=== PATIENT | male | born 1960 | race Caucasian/White ===

== ENCOUNTER 2016-10-02 17:20 | Emergency (ER) | payer BC ==
[2016-10-02] MEDS ORDERED: ONDANSETRON 4 MG TAB.RAPDIS PO ONE (17:47)
[2016-10-02] MEDS ORDERED: OXYCODONE-ACETAMINOPHEN 5-325 MG TABLET PO ONE (17:47)
--- NOTE | 2016-10-02 17:51 | ER Document Report ---
ED Medical Screen (RME) - General Chief Complaint: Fall Stated Complaint: FALL/RIGHT SHOULDER PAIN, HEAD PAIN Time Seen by Provider: 10/02/16 17:43 Notes: Patient was standing on the bed of a roll-back while it was tilted up, placing him approximately 6 feet off the ground. The asphalt below injuring his right clavicle, and striking his right occipito- parietal skull. Is having severe pain to his right collarbone region, feels short of breath and hurts to breathe. He is also having headache from where he struck his head. There is no neck tenderness. I have greeted and performed a rapid initial assessment of this patient. A comprehensive ED assessment and evaluation of the patient, analysis of test results and completion of the medical decision making process will be conducted by additional ED providers. TRAVEL OUTSIDE OF THE [place] IN LAST 30 DAYS: No - Related Data Allergies/Adverse Reactions: No Known Allergies Allergy (Unverified 10/02/16 17:27) Past Medical History Renal/ Medical History: Denies: Hx Peritoneal Dialysis Physical Exam - Vital signs Vitals: Temp Pulse Resp BP Pulse Ox 98.7 F 97 22 H 171/96 H 97 10/02/16 17:26 10/02/16 17:26 10/02/16 17:26 10/02/16 17:26 10/02/16 17:26 Course - Vital Signs Vital signs: Temp Pulse Resp BP Pulse Ox 98.7 F 97 22 H 171/96 H 97 10/02/16 17:26 10/02/16 17:26 10/02/16 17:26 10/02/16 17:26 10/02/16 17:26
--- NOTE | 2016-10-02 18:14 | RADIOLOGY REPORT (SQ) ---
EXAM DESCRIPTION: CT HEAD WITHOUT COMPLETED DATE/TIME: 10/02/2016 6:00 pm REASON FOR STUDY: fell off truck 6ft, broke clavicle, hit R occiput COMPARISON: None. TECHNIQUE: Axial images acquired through the brain without intravenous contrast. Images reviewed wi th bone, brain and subdural windows. Images stored on PACS. All CT scanners at this facility use dose modulation, iterative reconstruction, and/or weight based d osing when appropriate to reduce radiation dose to as low as reasonably achievable (ALARA). [facility]: Dose Right [facility]: CareDose [facility]: Dose Right [facility]: Teradose 4D [facility]: [employer] RADIATION DOSE: Up-to-date CT equipment and radiation dose reduction techniques were employed. CTDIv ol: 64.6 mGy. DLP: 1034 mGy-cm. mGy. LIMITATIONS: None. FINDINGS: VENTRICLES: Normal size and contour. CEREBRUM: No masses. No hemorrhage. No midline shift. Normal mac/white matter differentiation. N o evidence for acute infarction. CEREBELLUM: No masses. No hemorrhage. No alteration of density. No evidence for acute infarction. EXTRAAXIAL SPACES: No fluid collections. No masses. ORBITS AND GLOBE: No intra- or extraconal masses. Normal contour of globe without masses. CALVARIUM: No fracture. PARANASAL SINUSES: No fluid or mucosal thickening. SOFT TISSUES: Mild right parietal soft tissue swelling. OTHER: No other significant finding. IMPRESSION: No acute intracranial finding. TECHNICAL DOCUMENTATION: JOB ID: [id number] Quality ID # [id number]: Final reports with documentation of one or more dose reduction techniques (e.g., Au tomated exposure control, adjustment of the mA and/or kV according to patient size, use of iterative reconstruction technique) 2010 [employer]- All Rights Reserved
--- NOTE | 2016-10-02 18:46 | ER Document Report ---
ED Fall - General Mode of Arrival: Ambulatory Information source: Patient TRAVEL OUTSIDE OF THE [place] IN LAST 30 DAYS: No - HPI Context: Lost balance Location of injury/pain: Head, Shoulder - right <TONY ROMAN - Last Filed: 10/02/16 23:33> <CARINA NICKERSON - Last Filed: 10/03/16 04:34> - General Chief Complaint: Fall Stated Complaint: FALL/RIGHT SHOULDER PAIN, HEAD PAIN Time Seen by Provider: 10/02/16 17:43 Notes: Patient is a 55 year old male who presents to the ED with complaints of right side rib and shoulder and headache secondary to a fall that occurred today. Patient states that he fell approximately 6 foot off of a rollback trailer when he lost his balance. Patient states he thinks he landed on his right side and also hit his head. Patient has some back pain and difficulty breathing secondary to the pain but states some improvement after coming to the ED. Patient denies any abdominal pain, pain in his right wrist or elbow. Patient is not on any blood thinners. No other concerns or complaints at this time. (TONY ROMAN) - Related data Allergies/Adverse Reactions: No Known Allergies Allergy (Unverified 10/02/16 17:27) Past Medical History - General Information source: Patient - Social History Smoking Status: Never Smoker Family History: None Patient has suicidal ideation: No Patient has homicidal ideation: No Renal/ Medical History: Denies: Hx Peritoneal Dialysis <TONY ROMAN - Last Filed: 10/02/16 23:33> Review of Systems - Review of Systems Constitutional: No symptoms reported EENT: No symptoms reported Cardiovascular: No symptoms reported Respiratory: See HPI, Other - difficulty breathing secondary to pain Gastrointestinal: No symptoms reported Genitourinary: No symptoms reported Male Genitourinary: No symptoms reported Musculoskeletal: See HPI, Back pain, Joint pain - right shoulder Skin: No symptoms reported Hematologic/Lymphatic: No symptoms reported Neurological/Psychological: See HPI, Headaches <TONY ROMAN - Last Filed: 10/02/16 23:33> Physical Exam - General General appearance: Alert, Other - awake, appears uncomfortable - HEENT Head: Normocephalic, Atraumatic Eyes: Normal Extraocular movements intact: Yes Pupils: PERRL Neck: Normal, Other - no tenderness to palpation of midline neck - Respiratory Respiratory status: No respiratory distress Chest status: Tender - right lateral chest wall tenderness to palpation - Cardiovascular Rhythm: Regular Heart sounds: Normal auscultation Murmur: No Pulses: Normal: Brachial, Radial Normal capillary refill: Yes - Abdominal Inspection: Normal Distension: No distension Bowel sounds: Normal Tenderness: Nontender Organomegaly: No organomegaly - Back Back: Normal, Nontender - Extremities General upper extremity: Normal inspection, Normal color, Other - right fingers , wrist, elbow and humerus are all normal General lower extremity: Normal inspection, Normal ROM Shoulder: Nontender - right scapula is not tender to palpation, Tender - tender to palpation over his right clavical specifically his right acromion Arm: Normal - Neurological Neuro grossly intact: Yes Cognition: Normal Orientation: AAOx4 [place] Coma Scale Eye Opening: Spontaneous Joan Coma Scale Verbal: Oriented Joan Coma Scale Motor: Obeys Commands Joan Coma Scale Total: 15 Speech: Normal Motor strength normal: LUE, RUE, LLE, RLE Sensory: Normal - sensation is intact distally - Psychological Associated symptoms: Other - appears uncomfortable - Skin Skin Temperature: Warm Skin Moisture: Dry Skin Color: Normal <TONY ROMAN - Last Filed: 10/02/16 23:33> Course <TONY ROMAN - Last Filed: 10/02/16 23:33> - Diagnostic Test Radiology reviewed: Reports reviewed <CARINA NICKERSON - Last Filed: 10/03/16 04:34> - Re-evaluation Re-evalutation: 10/02/16 19:36 Patient was re-examined and updated on results. Patient was just given medication. (TONY ROMAN) 10/02/16 20:29 Patient with 6 foot fall. Patient has a right clavicle fracture. No other injuries noted on x-ray. Patient feels better with swelling and pain medication. Patient is to follow-up with orthopedics. Patient is neurovascularly intact at the time of discharge. Return if any worsening or concerning symptoms. Understands and agrees with plan. Stable for discharge. Grateful for care. (CARINA NICKERSON) - Vital Signs Vital signs: Temp Pulse Resp BP Pulse Ox 98.1 F 77 18 160/90 H 100 10/02/16 20:49 10/02/16 20:49 10/02/16 20:49 10/02/16 20:49 10/02/16 20:49 Discharge <TONY ROMAN - Last Filed: 10/02/16 23:33> <CARINA NICKERSON - Last Filed: 10/03/16 04:34> - Discharge Clinical Impression: Chest wall contusion Clavicle fracture Qualifiers: Encounter type: initial encounter Clavicle location: shaft Fracture type: closed Fracture alignment: displaced Laterality: right Qualified Code(s): S42.021A - Displaced fracture of shaft of right clavicle, initial encounter for closed fracture Condition: Stable Disposition: HOME, SELF-CARE Instructions: Fractured Clavicle ([facility]), Contusion ([facility]) Prescriptions: Lidocaine [Lidoderm 5% (700 mg) Transdermal Patch] 1 patch TP DAILY #30 adh..patch Oxycodone HCl/Acetaminophen [Percocet 5-325 mg Tablet] 1 - 2 tab PO Q4H PRN #20 tablet PRN Reason: Referrals: KILO ARCE MD [Primary Care Provider] - Follow up as needed GIOVANY BLOCK DO [ACTIVE STAFF] - Follow up in 3-5 days (Call for appointment tomorrow.) Scribe Attestation: 10/03/16 04:34 I personally performed the services described in the documentation, reviewed and edited the documentation which was dictated to the scribe in my presence, and it accurately records my words and actions. (CARINA NICKERSON) Scribe Documentation - Scribe Written by Rachael:: rachael Norton, 10/02/2016, 195 acting as scribe for :: Andrzej <TONY ROMAN - Last Filed: 10/02/16 23:33>
[2016-10-02] MEDS ORDERED: MORPHINE SULFATE 10 MG/ML INJ IM ONE (18:51)
--- NOTE | 2016-10-02 18:51 | RADIOLOGY REPORT (SQ) ---
EXAM DESCRIPTION: CHEST SINGLE VIEW COMPLETED DATE/TIME: 10/02/2016 6:35 pm REASON FOR STUDY: Right clavicle fx, SOB, hurts to breathe COMPARISON: None. EXAM PARAMETERS: NUMBER OF VIEWS: One view. TECHNIQUE: Single frontal radiographic view of the chest acquired. RADIATION DOSE: NA LIMITATIONS: None. FINDINGS: LUNGS AND PLEURA: No acute opacities, masses or pneumothorax. No pleural effusion. MEDIASTINUM AND HILAR STRUCTURES: No masses. Contour normal. HEART AND VASCULAR STRUCTURES: Heart normal in size. Normal vasculature. BONES: Right clavicle fracture. HARDWARE: None in the chest. OTHER: No other significant finding. IMPRESSION: Right clavicle fracture. No acute cardiopulmonary finding. TECHNICAL DOCUMENTATION: JOB ID: [id number]
[2016-10-02] MEDS ORDERED: METOCLOPRAMIDE HCL 10 MG TABLET PO ONE (18:52)
--- NOTE | 2016-10-02 18:53 | RADIOLOGY REPORT (SQ) ---
EXAM DESCRIPTION: CLAVICLE RIGHT COMPLETED DATE/TIME: 10/02/2016 6:35 pm REASON FOR STUDY: FX, fell off truck COMPARISON: None. NUMBER OF VIEWS: Two views. TECHNIQUE: Frontal and angled images were acquired of the right clavicle. LIMITATIONS: None. FINDINGS: MINERALIZATION: Normal. BONES: Comminuted right clavicular diaphyseal fracture with 1.6 cm of inferior displacement. No mitch ohumeral or AC joint Dislocation. No worrisome bone lesions. SOFT TISSUES: No obvious swelling or foreign body. OTHER: No other significant finding. IMPRESSION: Comminuted right clavicular diaphyseal fracture with 1.6 cm of inferior displacement. N o glenohumeral or AC joint Dislocation. TECHNICAL DOCUMENTATION: JOB ID: [id number] [employer]- All Rights Reserved
[2016-10-02] MEDS ORDERED: LIDOCAINE 5% (700 MG) TRANSDERMAL ADH..PATCH TP ONE (20:34)
[2016-10-02] MEDS ORDERED: HYDROCODONE/ACETAMINOPHEN 5-325 MG 6 TAB/DSPK PO PRN (20:34)
[2016-10-02 20:52] VITALS: BP 160/90
== END 2016-10-02 20:49 | disposition home or self-care (01) ==
LOC: ER 17:20
DX: S20.219A Contusion of unspecified front wall of thorax, initial encounter (principal); S42.021A Displaced fracture of shaft of right clavicle, initial encounter for closed fracture; R51 Headache; W17.89XA Other fall from one level to another, initial encounter
CPT/HCPCS: 99284; 96372; 71010; 73000; 70450; S0119; J2270

== ENCOUNTER 2017-05-26 16:50 | Emergency (ER) | payer BC ==
[2017-05-26] MEDS ORDERED: CYCLOBENZAPRINE HCL 10 MG TABLET PO ONE (19:10)
[2017-05-26] MEDS ORDERED: KETOROLAC TROMETHAMINE 60 MG/2 ML SDV IM ONE (19:10)
[2017-05-26] MEDS ORDERED: DEXAMETHASONE SOD PHOS INJ 10 MG/1 ML VIAL IM ONE (19:10)
--- NOTE | 2017-05-26 19:41 | RADIOLOGY REPORT (SQ) ---
EXAM DESCRIPTION: SHOULDER LEFT 2 OR MORE VIEWS COMPLETED DATE/TIME: 05/26/2017 7:29 pm REASON FOR STUDY: Severe pain left shoulder and neck COMPARISON: None. NUMBER OF VIEWS: Three views. TECHNIQUE: Internal rotation, external rotation, and Y view images acquired of the left shoulder. LIMITATIONS: None. FINDINGS: MINERALIZATION: Normal. BONES: No acute fracture or dislocation. No worrisome bone lesions. No significant osteophytes. GLENOHUMERAL JOINT: No significant findings. ACROMIOCLAVICULAR JOINT: No large osteophytes. SOFT TISSUES: No calcifications. VISUALIZED RIBS, SPINE, AND LUNG: No other significant finding. OTHER: No other significant finding. IMPRESSION: NEGATIVE STUDY OF THE LEFT SHOULDER. NO RADIOGRAPHIC EVIDENCE OF ACUTE INJURY. NO EXPLAN ATION FOR PAIN. TECHNICAL DOCUMENTATION: JOB ID: [id number] [employer]- All Rights Reserved Reading location - IP/workstation name: [email or web address]
--- NOTE | 2017-05-26 20:02 | RADIOLOGY REPORT (SQ) ---
EXAM DESCRIPTION: CT CERVICAL SPINE WITHOUT COMPLETED DATE/TIME: 05/26/2017 7:53 pm REASON FOR STUDY: Severe pain left shoulder and neck COMPARISON: None. TECHNIQUE: Axial images acquired through the cervical spine without intravenous contrast. Images re viewed with lung, soft tissue and bone windows. Reconstructed coronal and sagittal MPR images review ed. Images stored on PACS. All CT scanners at this facility use dose modulation, iterative reconstruction, and/or weight based d osing when appropriate to reduce radiation dose to as low as reasonably achievable (ALARA). [facility]: Dose Right [facility]: CareDose [facility]: Dose Right [facility]: Teradose 4D [facility]: [employer] RADIATION DOSE: CT Rad equipment meets quality standard of care and radiation dose reduction techniq ues were employed. CTDIvol: 18.1 mGy. DLP: 403 mGy-cm. mGy. LIMITATIONS: None. FINDINGS: ALIGNMENT: Anatomic. MINERALIZATION: Normal. VERTEBRAL BODIES: No fractures or dislocation. DISCS: Disc space narrowing with osteophytes in the mid and lower cervical spine. FACETS, LATERAL MASSES, POSTERIOR ELEMENTS: No fractures. No dislocation. No acute findings. HARDWARE: None in the spine. VISUALIZED RIBS: No fractures. LUNG APICES AND SOFT TISSUES: No significant or acute findings. OTHER: No other significant finding. IMPRESSION: DEGENERATIVE DISC DISEASE. NO ACUTE FINDINGS. TECHNICAL DOCUMENTATION: JOB ID: [id number] Quality ID # [id number]: Final reports with documentation of one or more dose reduction techniques (e.g., Au tomated exposure control, adjustment of the mA and/or kV according to patient size, use of iterative reconstruction technique) 2010 [employer]- All Rights Reserved Reading location - IP/workstation name: [email or web address]
--- NOTE | 2017-05-26 21:11 | ER Document Report ---
ED Neck/Back Problem - General Chief Complaint: Neck and Upper Back Pain Stated Complaint: NECK PAIN Time Seen by Provider: 05/26/17 18:48 Mode of Arrival: Ambulatory Information source: Patient Notes: 56-year-old male presents to ED for complaint of pain to his neck and arms 3 weeks. He states his been taken care of his mother and has been sleeping on a recliner. States his mother has multiple sclerosis and the pain in his neck and arm and left shoulder is getting much worse. TRAVEL OUTSIDE OF THE [place] IN LAST 30 DAYS: No - HPI Patient complains to provider of: Pain, Lower back Onset: Other - 3 weeks Onset: Gradual Timing: Worse Quality of pain: Sharp, Throbbing Severity: Severe Pain Level: 5 Context: Lifting Recent injury: Possibly Associated symptoms: Like prior neck/back pain, Radiation to arm, Upper back pain. denies: Constipation, Fever, Incontinence, Motor loss, Numbness/tingling , Unable to urinate, Lower back pain Exacerbated by: Movement of neck Relieved by: Nothing Similar symptoms previously: Yes Recently seen / treated by doctor: No - Related Data Allergies/Adverse Reactions: No Known Allergies Allergy (Verified 05/26/17 16:51) Past Medical History - General Information source: Patient - Social History Smoking Status: Former Smoker Cigarette use (# per day): No Chew tobacco use (# tins/day): No Smoking Education Provided: No Frequency of alcohol use: None Drug Abuse: None Occupation: none Family History: Arthritis, CAD, COPD, CVA, DM, Hyperlipidemia, Hypertension. denies: Malignancy, Thyroid Disfunction Patient has suicidal ideation: No Patient has homicidal ideation: No - Past Medical History Cardiac Medical History: Reports: Hx Hypercholesterolemia Pulmonary Medical History: Reports: None EENT Medical History: Reports: None Neurological Medical History: Reports: None Endocrine Medical History: Reports: Hx Hypothyroidism Renal/ Medical History: Reports: None Malignancy Medical History: Reports None GI Medical History: Reports: Hx Gastroesophageal Reflux Disease Musculoskeltal Medical History: Reports None Skin Medical History: Reports None Psychiatric Medical History: Reports: None Traumatic Medical History: Reports: None Infectious Medical History: Reports: None Surgical Hx: Negative Past Surgical History: Reports: None Review of Systems - Review of Systems Notes: Constitutional: [PRESENT: as per HPI. ABSENT: chills, fever(s), headache(s), weight gain, weight loss] Eyes: [ABSENT: visual disturbances] Ears: [ABSENT: hearing changes] Cardiovascular: [ABSENT: chest pain, dyspnea on exertion, edema, orthropnea, palpitations] Respiratory: [ABSENT: cough, hemoptysis] Gastrointestinal: [ABSENT: abdominal pain, constipation, diarrhea, hematemesis, hematochezia, nausea, vomiting] Genitourinary: [ABSENT: dysuria, hematuria] Musculoskeletal: Complaining of pain to the left neck down the left arm for the last 3 weeks. Integumentary: [ABSENT: rash, wounds] Neurological: [ABSENT: abnormal gait, abnormal speech, confusion, dizziness, focal weakness, syncope] Psychiatric: [ABSENT: anxiety, depression, homicidal ideation, suicidal ideation ] Endocrine: [ABSENT: cold intolerance, heat intolerance, menstrual abnormalities , polydipsia, polyuria] Hematologic/Lymphatic: [ABSENT: easy bleeding, easy bruising, lymphadenopathy] Physical Exam - Vital signs Vitals: Temp Pulse Resp BP Pulse Ox 97.7 F 79 13 128/76 H 98 05/26/17 16:56 05/26/17 16:56 05/26/17 16:56 05/26/17 16:56 05/26/17 16:56 - Notes Notes: PHYSICAL EXAMINATION: GENERAL: Well-appearing, well-nourished and in no acute distress. HEAD: Atraumatic, normocephalic. EYES: Pupils equal round and reactive to light, extraocular movements intact, sclera anicteric, conjunctiva are normal. ENT: Nares patent, oropharynx clear without exudates. Moist mucous membranes. NECK: Normal range of motion, supple without lymphadenopathy LUNGS: Breath sounds clear to auscultation bilaterally and equal. No wheezes rales or rhonchi. HEART: Regular rate and rhythm without murmurs ABDOMEN: Soft, nontender, nondistended abdomen. No guarding, no rebound. No masses appreciated. Musculoskeletal: Pain to left side of his neck down the left shoulder [facility] down the left arm. No numbness and tingling. Will not move shoulder due to discomfort. NEUROLOGICAL: Cranial nerves grossly intact. Normal speech, normal gait. Normal sensory, motor exams PSYCH: Normal mood, normal affect. SKIN: Warm, Dry, normal turgor, no rashes or lesions noted. Course - Re-evaluation Re-evalutation: 05/27/17 01:58 Patient complaining of pain neck down the left shoulder and left arm for [address] of the neck and x-ray of the shoulder were both negative. Patient was treated with Toradol Decadron and given a [facility] dispense pack and prescription for muscle relaxers. Patient to follow-up with orthopedics if pain continues. - Vital Signs Vital signs: Temp Pulse Resp BP Pulse Ox 97.6 F 63 18 140/83 H 99 05/26/17 21:15 05/26/17 21:15 05/26/17 21:15 05/26/17 21:15 05/26/17 21:15 - Diagnostic Test Radiology reviewed: Image reviewed, Reports reviewed Discharge - Discharge Clinical Impression: Degenerative disc disease, cervical, Pain, neck, Pain, joint, shoulder, left Condition: Stable Disposition: HOME, SELF-CARE Additional Instructions: Arthritis Your symptoms are due to arthritis. Arthritis is an inflammation of the joints. There are many types -- osteoarthritis (due to "wear and tear"), auto- immmune arthritis (such as rheumatoid, lupus, Rubin's, and others), and crystal -induced arthritis (such as gout and pseudogout). The physician's examination, combined with laboratory tests, will determine the cause of your arthritis. All types of arthritis are treated with antiinflammatory medications. Other medication may be required for special types of arthritis, or if your problem does not respond to the antiinflammatory medicine. Local warmth may be helpful. Move the involved joints through the full range of motion daily. Mild exercise is usually still possible for most persons with arthritis (ask your physician). Swimming provides good exercise without damaging the joints. Contact the physician if you are worsening in any way. You have degenerative disc disease in your cervical spine which is contributing to your pain in your neck and across her shoulder Anti-Inflammatory Medication You have received a prescription for an antiinflammatory agent. This is an excellent, safe drug for pain control. In addition, it has potent antiinflammatory effects which are beneficial, especially in the treatment of injuries, arthritis, or tendonitis. It's best to take this medicine with food. Persons with ulcer disease or allergy to aspirin should notify their physician of this before taking this drug. Take the medication exactly as prescribed. Don't take additional doses unless instructed to do so by your doctor. If you develop wheezing, shortness of breath, hives, faintness, stomach pain, vomiting, or dark black stools, return for re-evaluation at once. Toradol Injection You have been given an injection of ketorolac tromethamine (Toradol). This is an excellent, safe drug for pain control. It also has potent antiinflammatory action. You should have significant pain relief within about one hour. Toradol is not addicting and is non-sedating. It does not interfere with driving or work. Call or return if you develop itching, hives, shortness of breath, or rash. STEROID MEDICATION: You have been given an injection of medicine of the cortisone/steroid class. This medication is used to control inflammation or allergy. It is often continued as a pill for a short period of time, until the acute process subsides. There are usually no side effects from short-term use of cortisone-like medications. Some persons feel an increased sense of well-being and are not sleepy at bedtime. Long-term use of cortisone medications is best avoided, unless required for a severe condition. If your condition does not remit, or relapses after the course of corticosteroid medication, you should consult your physician. Muscle Relaxers Muscle relaxing medications are usually prescribed for acute muscle spasm or injury to the neck and back. They are often combined with antiinflammatory pain medication for increased relief. You may stop the muscle relaxer when the pain and stiffness have improved. Start the medication again if spasms recur. Muscle relaxers may cause drowsiness, especially with the first dose. Do not operate machinery or drive while under the effects of the medication. Most muscle relaxers last up to 24 hours. Do not combine the medication with alcohol. You have been given the written reports of your x-ray and CT as well as a CD of your x-ray and CT to follow-up with your primary doctor. You have degenerative disc disease with arthritis. Please try Aspercreme to the area or over-the- counter lighted cane patches. Follow-up with a back specialist. FOLLOW-UP CARE: If you have been referred to a physician for follow-up care, call the physician s office for an appointment as you were instructed or within the next two days. If you experience worsening or a significant change in your symptoms, notify the physician immediately or return to the Emergency Department at any time for re-evaluation. Prescriptions: Ibuprofen 800 mg PO Q8HP PRN #30 tablet PRN Reason: Cyclobenzaprine HCl [Flexeril 10 mg Tablet] 10 mg PO TIDP PRN #15 tab PRN Reason: Forms: Elevated Blood Pressure, Return to Work Referrals: KILO ARCE MD [NO LOCAL MD] - Follow up as needed VIVIAN MILLER MD [ASSOCIATE] - Follow up as needed
[2017-05-26 21:16] VITALS: BP 140/83
== END 2017-05-26 21:29 | disposition home or self-care (01) ==
LOC: ER 16:50
DX: M50.30 Other cervical disc degeneration, unspecified cervical region (principal); M54.6 Pain in thoracic spine; E78.00 Pure hypercholesterolemia, unspecified; E03.9 Hypothyroidism, unspecified; Z87.891 Personal history of nicotine dependence
CPT/HCPCS: 99284; 96372; 73030; 72125; J1885; J1100